=== PATIENT | female | born 1975 | race Caucasian/White ===

== ENCOUNTER 2019-02-19 22:39 | Emergency (ER) | payer SELFPAY ==
--- NOTE | 2019-02-20 07:30 | ULT ---
PRELIMINARY REPORT/DIRECT RADIOLOGY/EMERGENCY AFTER HOURS PROCEDURE: EXAM: US Duplex right Lower Extremity Veins. CLINICAL HISTORY: HX: RLE PAIN, SWELLING. COMPARISON: None provided. FINDINGS: DEEP VEINS: The common femoral, femoral, and popliteal veins are echolucent and compressible. These v essels demonstrate respiratory variation and augmentation. There is normal color Doppler flow throughout. The visualized calf veins are also patent. SUPERFICIAL VEINS: The visualized greater saphenous vein is patent. SOFT TISSUES: No popliteal fossa cyst or other abnormalities. IMPRESSION: No deep venous thrombosis in the right lower extremity. ELECTRONICALLY SIGNED BY: Karissa Parry M.D. Feb 20, 2019 12:44:36 AM SUPPORT MANAGER FINAL REPORT ULTRASOUND VENOUS DOPPLER RT UNILATERAL: History: Deep venous thrombosis. Comparison: None. Findings: Real-time grayscale, color, and spectral analysis right lower extremity venous system was performed. The common femoral, femoral, proximal portions greater saphenous and deep femoral veins as well as the popliteal posterior tibial veins were interrogated. Normal flow, augmentation, and compression. Impression: No deep venous thrombosis. Transcribed Date/Time: 02/20/2019 8:15 AM
== END 2019-02-20 00:20 | disposition home or self-care (01) ==
LOC: ERS 22:39
DX: M79.661 Pain in right lower leg (principal); F17.210 Nicotine dependence, cigarettes, uncomplicated

== ENCOUNTER 2022-12-28 12:48 | Outpatient (CLI) | payer BC | END 2022-12-28 12:49 | disposition home or self-care (01) | LOC: DTY/OP 12:48 | PROVIDERS: ATTEND Specialist | DX: E66.01 Morbid (severe) obesity due to excess calories (principal) | CPT/HCPCS: 97802 ==

== ENCOUNTER 2023-01-20 12:34 | Outpatient (CLI) | payer BC | END 2023-01-20 12:35 | disposition home or self-care (01) | LOC: LABBT 12:34 | PROVIDERS: ATTEND Specialist | DX: Z01.810 Encounter for preprocedural cardiovascular examination (principal); E66.01 Morbid (severe) obesity due to excess calories | CPT/HCPCS: 93005; 93010 ==

== ENCOUNTER 2023-01-20 13:00 | Inpatient (IN) | payer BC ==
[2023-01-20 13:56] VITALS: BMI 38.0
[2023-01-26] MEDS ORDERED: Heparin 5,000 UNITS/ML VIAL ONE (06:24)
[2023-01-26] MEDS ORDERED: Ketorolac Tromethamine 30 MG/ML VIAL ONE ×2 (06:24→11:50)
[2023-01-26] MEDS ORDERED: Acetaminophen 500 MG TAB ONE (06:25)
[2023-01-26] MEDS ORDERED: Bupivacaine 0.25% HCL 30 ML VIAL ONE (06:41)
[2023-01-26] MEDS ORDERED: EPINEPHrine 1 MG/ML VIAL ONE (06:41)
[2023-01-26] MEDS ORDERED: PROPOFOL 20 ML ONE (07:09)
[2023-01-26] MEDS ORDERED: Rocuronium Bromide 10 MG/ML (10ML VIAL) ONE ×2 (07:10→07:52)
[2023-01-26] MEDS ORDERED: Lidocaine 1% PF 5 ML VIAL ONE ×2 (07:10→07:52)
[2023-01-26] MEDS ORDERED: Dexamethasone 4 mg/ml Vial ONE (07:10)
[2023-01-26] MEDS ORDERED: Ondansetron PF 4 MG/2 ML Vial ONE ×2 (07:10→07:52)
[2023-01-26] MEDS ORDERED: CEFAZOLIN 2 GM VIAL ONE (07:33)
[2023-01-26] MEDS ORDERED: Sodium Chloride 0.9% 100 ML ONE (07:33)
[2023-01-26] MEDS ORDERED: PHENYLEPHRINE-NS 100 MCG/ML 10 ML SYRINGE ONE ×2 (07:52→08:42)
[2023-01-26] MEDS ORDERED: PROPOFOL 200 MG/20 ML VIAL ONE (07:52)
[2023-01-26] MEDS ORDERED: Midazolam HCl 2 mg/2 ml Vial ONE (07:52)
[2023-01-26] MEDS ORDERED: Dexamethasone 20 MG/5 ML VIAL ONE (07:52)
[2023-01-26] MEDS ORDERED: Glycopyrrolate 0.2 MG/ML 5 ML SYRINGE ONE ×2 (07:52→08:35)
[2023-01-26] MEDS ORDERED: fentaNYL 50 mcg/mL 1 mL Vial ONE ×7 (07:52→12:13)
[2023-01-26] MEDS ORDERED: Indocyanine Green 25 MG/10 ML VIAL ONE (09:41)
[2023-01-26] MEDS ORDERED: SUGAMMADEX SODIUM 200 MG/2 ML VIAL ONE (10:19)
[2023-01-26] MEDS ORDERED: Promethazine HCl 25 MG/ML VIAL IM PRN ×2 (10:57→11:15)
[2023-01-26] MEDS ORDERED: Ondansetron HCl/PF 4 MG/2 ML Vial IVP PRN (10:57)
[2023-01-26] MEDS ORDERED: HYDROmorphone 2 MG/ML VIAL SLOW IVP PRN (10:57)
[2023-01-26] MEDS ORDERED: hydrALAZINE 20 MG/ML VIAL SLOW IVP PRN (11:15)
[2023-01-26] MEDS ORDERED: Ondansetron PF 4 MG/2 ML Vial IVP PRN (11:15)
[2023-01-26] MEDS ORDERED: Morphine 4 MG/ML VIAL SLOW IVP PRN (11:15)
[2023-01-26] MEDS ORDERED: Hydrocodone-Acetamin 15 ML UDCUP PO PRN (11:15)
[2023-01-26] MEDS ORDERED: Ipratropium/Albuterol 3 ML NEB NEB PRN (11:15)
[2023-01-26] MEDS ORDERED: diphenhydrAMINE 50 MG/ML VIAL IVP PRN (11:15)
[2023-01-26] MEDS ORDERED: Glucagon 1 MG/ML KIT IM PRN (11:15)
[2023-01-26] MEDS ORDERED: Dextrose 5% in Water 1,000 ML IV PRN (11:15)
[2023-01-26] MEDS ORDERED: Morphine 2 MG/ML VIAL SLOW IVP PRN (11:15)
[2023-01-26] MEDS ORDERED: Dextrose 50% Abboject 50 ML SYRINGE SLOW IVP PRN (11:15)
[2023-01-26] MEDS ORDERED: HYDROmorphone 0.5 MG/0.5 ML SYRINGE ONE (11:29)
[2023-01-26] MEDS: Ketorolac Tromethamine 30 MG/ML VIAL IVP SCH ×3 (11:48→23:35)
[2023-01-26] MEDS: D5 1/2 NS w/20 mEq KCL 1,000 ML IV SCH ×2 (15:53→21:06)
[2023-01-26] MEDS ORDERED: DOXEPIN HCL 50 MG PO SCH (21:00)
[2023-01-26] MEDS ORDERED: Doxepin HCl 25 MG CAP PO SCH (21:00)
[2023-01-27] MEDS: D5 1/2 NS w/20 mEq KCL 1,000 ML IV SCH ×2 (04:46→11:31)
[2023-01-27 06:00] LABS: #Eosinphils 0.1 thou/uL (0.0-0.7); #Monocytes 0.5 thou/uL (0.11-0.59); %Basophils 0.2 % (0.0-1.0); %Eosinophils 0.6 % (0.0-10.0); %Monocytes 4.8 % (0.0-10.0); %Neutrophils 61.1 % (42.0-75.0); Hematocrit 33.4 % (36.0-47.0); Hemoglobin 10.7 g/dL (12.0-16.0); Mean Corpuscular Hemoglobin 30.8 pg (27.0-31.0); Mean Corpuscular Volume 96.3 fl (78.0-98.0); Mean Platelet Volume 10.9 fL (7.4-10.4); Platelet Count 224 10x3/uL (130-400); RBC Distribution Width 12.8 % (11.5-14.5); Red Blood Cell (RBC) Count 3.47 mill/uL (4.20-5.40); White Blood Cell (WBC) Count 9.8 10x3/uL (4.8-10.8)
[2023-01-27] MEDS: Ketorolac Tromethamine 30 MG/ML VIAL IVP SCH ×2 (06:48→12:31)
[2023-01-27 06:49] LABS: Anion Gap 11 mmol/L (10-20); BUN (Urea Nitrogen) 6 mg/dL (7.0-18.7); Calc. Creatinine Clearance 189 mL/min (70-130); Calcium 7.9 mg/dL (7.8-10.44); Carbon Dioxide 24 mmol/L (22-29); Chloride 108 mmol/L (98-107); Estimated GFR 110; Glucose 109 mg/dL (70-105); Potassium 3.8 mmol/L (3.5-5.1); Sodium 139 mmol/L (136-145)
[2023-01-27] MEDS ORDERED: Sertraline 100 MG TAB PO SCH (09:00)
[2023-01-27] MEDS ORDERED: Lisinopril 10 MG TAB PO SCH (09:00)
[2023-01-27] MEDS ORDERED: Pantoprazole 40 MG VIAL IVP SCH (09:00)
[2023-01-27 09:02] VITALS: BP 112/77; TEMP 98.2
== END 2023-01-27 12:00 | disposition home or self-care (01) | DRG 621 ==
LOC: SURG A 01-26 05:54 → SURG B 01-26 12:49
PROVIDERS: ADMIT Specialist; ATTEND Specialist
PROC: 0D164Z9 Bypass Stomach to Duodenum, Percutaneous Endoscopic Approach (ICD-10-PCS; principal; 2023-01-26)
PROC: 8E0W4CZ Robotic Assisted Procedure of Trunk Region, Percutaneous Endoscopic Approach (ICD-10-PCS; 2023-01-26)
PROC: 3E033XZ Introduction of Vasopressor into Peripheral Vein, Percutaneous Approach (ICD-10-PCS; 2023-01-26)
DX: E66.01 Morbid (severe) obesity due to excess calories (principal); K44.9 Diaphragmatic hernia without obstruction or gangrene; M19.90 Unspecified osteoarthritis, unspecified site; F32.A Depression, unspecified; K21.9 Gastro-esophageal reflux disease without esophagitis; I11.9 Hypertensive heart disease without heart failure; Z68.38 Body mass index [BMI] 38.0-38.9, adult; Z79.899 Other long term (current) drug therapy; Z82.49 Family history of ischemic heart disease and other diseases of the circulatory system; Z80.9 Family history of malignant neoplasm, unspecified; Z87.891 Personal history of nicotine dependence
CPT/HCPCS: 36415; 80048; 85025; C9113; J0171; J1100; J1170; J1644; J1650; J1885; J2250; J2405; J2704; J3010; J3480; J3490; S0020

== ENCOUNTER 2024-01-19 09:15 | Inpatient (IN) | payer BC ==
[2024-01-19 10:41] LABS: Troponin I Less than 0.010 ng/mL (< 0.028)
[2024-01-19] MEDS ORDERED: Magnesium 2 GM/50 ML BAG (IN WATER) ONE (10:57)
[2024-01-19 11:16] LABS: Chloride 107 mmol/L (98-107); Potassium 4.5 mmol/L (3.5-5.1); Sodium 145 mmol/L (136-145)
[2024-01-19 11:17] LABS: Albumin 4.1 g/dL (3.5-5.0)
[2024-01-19 11:18] LABS: Globulin 2.8 g/dL (2.4-3.5); Glucose 110 mg/dL (70-105); Protein, Total 6.9 g/dL (6.0-8.3)
[2024-01-19 11:19] LABS: Anion Gap 26 mmol/L (10-20); Carbon Dioxide 17 mmol/L (22-29)
[2024-01-19 11:20] LABS: Alkaline Phosphatase 109 U/L (40-110); Bilirubin, Total 0.9 mg/dL (0.2-1.2)
[2024-01-19 11:22] LABS: BUN (Urea Nitrogen) 7 mg/dL (7.0-18.7); Calc. Creatinine Clearance 0 mL/min (70-130); Estimated GFR 102
[2024-01-19 11:23] LABS: ALT (SGPT) 30 U/L (8-55); AST (SGOT) 37 U/L (5-34)
[2024-01-19] MEDS ORDERED: Lorazepam 2 MG/ML VIAL ONE (11:25)
[2024-01-19] MEDS ORDERED: Lidocaine 2 gm/D5W 500 ml 500 ML ONE (11:25)
[2024-01-19] MEDS ORDERED: Lidocaine 2% PF 100 mg/5 ml Syringe ONE (11:36)
[2024-01-19 13:54] LABS: #Basophils 0.05 10x3/uL (0.0-0.2); #Eosinophils Less than 0.03 10x3/uL (0.0-0.7); %Basophils 0.6 % (0.0-1.0); %Eosinophils 0.3 % (0.0-10.0); %Lymphocytes 26.5 % (21.0-51.0); %Monocytes 7.4 % (0.0-10.0); %Neutrophils 65.1 % (42.0-75.0); Hematocrit 38.7 % (36.0-47.0); Hemoglobin 13.5 g/dL (12.0-16.0); Mean Corpuscular HGB CONC 34.9 g/dL (32.0-36.0); Mean Corpuscular Hemoglobin 33.1 pg (27.0-31.0); Mean Corpuscular Volume 94.9 fL (78.0-98.0); Mean Platelet Volume 10.2 fL (7.4-10.4); Platelet Count 205 10x3/uL (130-400); RBC Distribution Width 11.5 % (11.5-14.5); Red Blood Cell (RBC) Count 4.08 mill/uL (4.20-5.40)
[2024-01-19] MEDS ORDERED: Electrolyte Replacement Protocol 1 EACH FS SCH (14:15)
[2024-01-19] MEDS ORDERED: Lidocaine 2 gm/D5W 500 ml 500 ML IVPB SCH (14:15)
[2024-01-19 14:19] LABS: Platelet Adequacy Comment Platelets Normal
[2024-01-19] MEDS ORDERED: Electrolyte Replacement Protocol FS PRN (15:00)
[2024-01-19 15:17] LABS: #Basophils 0.04 10x3/uL (0.0-0.2); #Eosinophils Less than 0.03 10x3/uL (0.0-0.7); %Basophils 0.6 % (0.0-1.0); %Eosinophils 0.3 % (0.0-10.0); %Lymphocytes 30.4 % (21.0-51.0); %Monocytes 8.7 % (0.0-10.0); %Neutrophils 59.7 % (42.0-75.0); Hematocrit 38.8 % (36.0-47.0); Hemoglobin 13.7 g/dL (12.0-16.0); Mean Corpuscular HGB CONC 35.3 g/dL (32.0-36.0); Mean Corpuscular Hemoglobin 33.4 pg (27.0-31.0); Mean Corpuscular Volume 94.6 fL (78.0-98.0); Mean Platelet Volume 10.3 fL (7.4-10.4); Platelet Count 211 10x3/uL (130-400); RBC Distribution Width 11.6 % (11.5-14.5)
[2024-01-19 15:31] VITALS: BMI 20.8
[2024-01-19 15:31] LABS: Magnesium 2.1 mg/dL (1.6-2.6); Phosphorus 3.3 mg/dL (2.3-4.7)
[2024-01-19 15:35] LABS: Troponin I Less than 0.010 ng/mL (< 0.028)
[2024-01-19] MEDS: Thiamine HCl 200 MG/2 ML VIAL SLOW IVP SCH (15:55)
[2024-01-19 17:31] LABS: Amphetamine Not Detected (NotDetected); Barbiturates Screen Not Detected (NotDetected); Benzodiazepine Screen Not Detected (NotDetected); Cocaine Metabolite Screen Not Detected (NotDetected); Methadone Not Detected (NotDetected); Methamphetamine Not Detected (NotDetected); Opiate Screen Not Detected (NotDetected); Oxycodone Screen Not Detected (NotDetected); Phencyclidine (PCP) Not Detected (NotDetected); THC/Cannabinoid Screen Detected (NotDetected); Tricyclic Screen Not Detected (NotDetected)
[2024-01-19] MEDS ORDERED: Communication Order-Pharmacy FS SCH (18:15)
[2024-01-19 18:41] LABS: Troponin I Less than 0.010 ng/mL (< 0.028)
[2024-01-19] MEDS: Folic Acid 1 MG TAB PO SCH (20:31)
[2024-01-19] MEDS: Multivit, Therapeutic 1 TAB PO SCH (20:31)
[2024-01-19] MEDS: Pantoprazole 40 MG VIAL IVP SCH (21:47)
[2024-01-19] MEDS: Acetaminophen 325 MG TAB PO PRN (23:46)
[2024-01-20 05:50] LABS: #Basophils 0.03 10x3/uL (0.0-0.2); %Basophils 0.5 % (0.0-1.0); %Eosinophils 2.2 % (0.0-10.0); %Lymphocytes 44.7 % (21.0-51.0); %Monocytes 8.5 % (0.0-10.0); %Neutrophils 43.9 % (42.0-75.0); Hematocrit 40.4 % (36.0-47.0); Hemoglobin 13.7 g/dL (12.0-16.0); Mean Corpuscular HGB CONC 33.9 g/dL (32.0-36.0); Mean Corpuscular Volume 97.3 fL (78.0-98.0); Mean Platelet Volume 10.2 fL (7.4-10.4); Platelet Count 190 10x3/uL (130-400); RBC Distribution Width 11.9 % (11.5-14.5); Red Blood Cell (RBC) Count 4.15 mill/uL (4.20-5.40)
[2024-01-20 06:27] LABS: Anion Gap 13 mmol/L (10-20); BUN (Urea Nitrogen) 7 mg/dL (7.0-18.7); Calc. Creatinine Clearance 108 mL/min (70-130); Calcium 8.8 mg/dL (7.8-10.44); Carbon Dioxide 25 mmol/L (22-29); Chloride 107 mmol/L (98-107); Estimated GFR 108; Glucose 100 mg/dL (70-105); Phosphorus 3.6 mg/dL (2.3-4.7); Potassium 3.4 mmol/L (3.5-5.1); Sodium 142 mmol/L (136-145)
[2024-01-20] MEDS: Potassium Chloride 20 MEQ in Premix 1 BAG IVPB SCH (06:49)
[2024-01-20] MEDS ORDERED: Heparin 10,000 UNITS/ 10 ML VIAL ONE (07:28)
[2024-01-20] MEDS ORDERED: Midazolam HCl 2 mg/2 ml Vial ONE (08:38)
[2024-01-20] MEDS ORDERED: fentaNYL 50 mcg/mL 1 mL Vial ONE (08:38)
[2024-01-20] MEDS ORDERED: Enoxaparin 40 MG (0.4 mL) SYRINGE SC SCH (09:00)
[2024-01-20] MEDS: Sertraline 100 MG TAB PO SCH (09:42)
[2024-01-20] MEDS: Folic Acid 1 MG TAB PO SCH (09:43)
[2024-01-20] MEDS: Multivit, Therapeutic 1 TAB PO SCH (09:43)
[2024-01-20] MEDS: Magnesium 2 GM/50 ML(in water) 2 GM in Premix 1 BAG IVPB SCH (09:51)
[2024-01-20] MEDS: Pantoprazole DR 40 MG TAB PO SCH (09:51)
[2024-01-20] MEDS: traMADol HCl 50 MG TAB PO SCH (12:59)
[2024-01-20 14:40] LABS: Potassium 3.7 mmol/L (3.5-5.1)
[2024-01-21 04:23] LABS: #Basophils 0.04 10x3/uL (0.0-0.2); %Basophils 0.6 % (0.0-1.0); %Eosinophils 2.6 % (0.0-10.0); %Lymphocytes 38.7 % (21.0-51.0); %Monocytes 7.6 % (0.0-10.0); %Neutrophils 50.3 % (42.0-75.0); Hematocrit 40.7 % (36.0-47.0); Hemoglobin 13.8 g/dL (12.0-16.0); Mean Corpuscular HGB CONC 33.9 g/dL (32.0-36.0); Mean Corpuscular Volume 97.4 fL (78.0-98.0); Mean Platelet Volume 10.5 fL (7.4-10.4); Platelet Count 179 10x3/uL (130-400); RBC Distribution Width 11.5 % (11.5-14.5); Red Blood Cell (RBC) Count 4.18 mill/uL (4.20-5.40)
[2024-01-21 04:43] LABS: Anion Gap 16 mmol/L (10-20); BUN (Urea Nitrogen) 5 mg/dL (7.0-18.7); Calc. Creatinine Clearance 119 mL/min (70-130); Calcium 8.7 mg/dL (7.8-10.44); Carbon Dioxide 21 mmol/L (22-29); Chloride 108 mmol/L (98-107); Estimated GFR 111; Glucose 105 mg/dL (70-105); Magnesium 1.8 mg/dL (1.6-2.6); Potassium 3.7 mmol/L (3.5-5.1); Sodium 141 mmol/L (136-145)
[2024-01-21] MEDS: FLU (Fluarix Triv) TS24-25(6MOS UP)/PF 45 MCG/0.5 ML Syringe IM ONE (08:07)
[2024-01-21] MEDS ORDERED: Magnesium 2 GM/50 ML(in water) 2 GM in Premix 1 BAG IVPB SCH (09:00)
[2024-01-21] MEDS: Magnesium Oxide 400 MG TAB PO SCH (09:23)
[2024-01-21 11:59] VITALS: TEMP 98
[2024-01-22] MEDS ORDERED: Thiamine 100 MG TAB PO SCH (21:00)
== END 2024-01-21 11:44 | disposition home or self-care (01) | DRG 287 ==
LOC: ERS 09:15 → CCU 13:29
PROVIDERS: ADMIT Family Medicine; ATTEND Family Medicine
PROC: B211YZZ Fluoroscopy of Multiple Coronary Arteries using Other Contrast (ICD-10-PCS; principal; 2024-01-19)
PROC: B215YZZ Fluoroscopy of Left Heart using Other Contrast (ICD-10-PCS; 2024-01-19)
DX: I47.20 Ventricular tachycardia, unspecified (principal); K21.9 Gastro-esophageal reflux disease without esophagitis; F32.A Depression, unspecified; I10 Essential (primary) hypertension; R94.31 Abnormal electrocardiogram [ECG] [EKG]; F41.9 Anxiety disorder, unspecified; Z79.899 Other long term (current) drug therapy
CPT/HCPCS: 36415; 71045; 80048; 80053; 80306; 83735; 84100; 84484; 85025; 93005; 93010; 93458; 94760; 96365; 96366; 96375; 99152; C1769; C1887; J1644; J2002; J2003; J2060; J2250; J2470; J3010; J3411; J3475; J3480